=== PATIENT | male | born 1975 | race Caucasian/White ===

== ENCOUNTER 2019-09-26 16:14 | Emergency (ER) | payer BC ==
[2019-09-26 17:09] VITALS: BP 150/89
--- NOTE | 2019-09-26 17:10 | UC ---
FLU HPI - HPI Summary HPI Summary: Onset two days ago with sinus congestion, and pressure, cough, fever. Chills bodyaches, headache. Throat is sore "from coughing."Pt was on vacation last week , he went snorkling and feels he may have inhaled some salt water. One loose stool this am , no vomiting. - History of Current Complaint Chief Complaint: UCRespiratory Stated Complaint: SINUSES Time Seen by Provider: 09/26/19 17:00 Pain Intensity: 7 - Allergy/Home Medications Allergies/Adverse Reactions: Allergies Allergy/AdvReac Type Severity Reaction Status Date / Time No Known Allergies Allergy Verified 09/26/19 16:55 Home Medications: Home Medications Ibuprofen TAB* [Advil TAB*] 400 mg PO Q6H PRN 09/26/19 [History Confirmed ] PMH/Surg Hx/FS Hx/Imm Hx - Surgical History Surgical History: Yes Surgery Procedure, Year, and Place: R ankle. left ankle repair with hardware - Family History Known Family History: Negative: Hypertension, Diabetes - Social History Alcohol Use: Occasionally Substance Use Type: None Smoking Status (MU): Never Smoked Tobacco Physical Exam Vital Signs: Initial Vital Signs Temp 99.9 F 09/26/19 16:56 Pulse 86 09/26/19 16:56 Resp 16 09/26/19 16:56 BP 150/89 09/26/19 16:56 Pulse Ox 97 09/26/19 16:56 Flu Course/Dx - Differential Dx/Diagnosis Provider Diagnosis: Influenza Discharge ED - Sign-Out/Discharge Documenting (check all that apply): Patient Departure All imaging exams completed and their final reports reviewed: No Studies - Discharge Plan Condition: Good Disposition: HOME Patient Education Materials: Influenza (ED) Referrals: No Primary Care Phys,NOPCP [Primary Care Provider] - - Billing Disposition and Condition Condition: GOOD Disposition: Home
[2019-09-26 17:20] LABS: Influenza A Molecular POSITIVE (Negative)
== END 2019-09-26 17:44 | disposition home or self-care (01) ==
LOC: UCCORT 16:14
DX: J11.1 Influenza due to unidentified influenza virus with other respiratory manifestations (principal)
CPT/HCPCS: 99202; G0463